=== PATIENT | female | born 1965 | race Caucasian/White ===

== ENCOUNTER 2023-07-22 15:17 | Inpatient (IN) | payer MEDICARE, OTHER ==
[~2023-07-22] VITALS: Ht 152.4 cm; Wt 43.3 kg
[~2023-07-22 15:17] MED LIST: ATIVAN0.5 MG PO; BACLOFEN5 MG PO; BASAG SOL SQ; BREO ELLIPTA 11 EACH INH; CEFDINIR300 MG PO; CHAIR CUSHION DEVICE ONE; COLACE100 MG PO; CRANBERRY450 M2 PO; DRAMAMINE25 M4 PO; DULOXETINE HCL60 MG PO; EFFEXOR XR37.5 M1 PO; EFFEXOR XR75 M1 PO; FENOFIBRATE160 MG PO; FEROSUL325 MG PO; FLUDROCORTISON0.1 MG PO; FOAM BANDAGE 5X5 T ONE; GLUMETZA1000 MG PO; HYDROCIL INSTA1 EACH PO; HYDROCODONE-AC1 EAC1 PO; INVEGA9 MG PO; LASIX20 MG PO; LEPTOSPERMUM HONEY 0.5 OZ TUBE T ONE; LEVEMIR100 UNIT/1 SC; LYVISPAH10 M1 PO; MELATONIN10 M2 PO; MELATONIN10 M5 SL; MELOXICAM7.5 MG PO; METAMUCIL0.4 G1 PO; NATURE'S BLEND F1 MG PO; NEXIUM40 MG PO; NORVASC5 MG PO; OMNICEF300 MG PO; PHENOBARBITAL15 MG PO; PHENOBARBITAL64.8 MG PO; POTASSIUM CHLO10 MEQ PO; PRISTIQ50 MG PO; REFRESH LIQUIGE15 M1 OP; REMERON15 M2 PO; RESTASIS1 EACH OP; TRANSDERM-SCOP1 EAC1 T; TRANSDERM-SCOP1 EAC1 TD; TRILEPTAL600 MG PO; TUMS FRESHERS200 MG PO; TYLENOL325 M1 PO; VISTARIL25 MG PO; VITAMIN D31250 MC1 PO; VRAYLAR3 MG PO; XALATAN 0.005%2.5 ML INTRAOC; XANAX0.25 MG PO; XANAX0.5 MG PO; ZOCOR40 MG PO
[2023-07-22 16:43] VITALS: BP 145/65
[2023-07-22] MEDS ORDERED: ACETAMINOPHEN 325 MG TAB PO PRN (18:50)
[2023-07-22] MEDS ORDERED: MG-AL HYDROXIDE/SIMETICONE 30 ML UDC PO PRN (18:50)
[2023-07-22] MEDS ORDERED: Magnesium Hydroxide 30 ML UDC PO PRN (18:50)
[2023-07-22] MEDS ORDERED: Menthol/Zinc Oxide 4 GM THIN T PRN (19:00)
[2023-07-22 19:36] LABS: BASO # 0.1 10*3/uL (0.0-0.1); BASO % 0.4 % (0.0-1.0); EOS # 0.1 10*3/uL (0.0-0.4); EOS % 0.4 % (1.0-4.0); HEMATOCRIT 35.3 % (37.0-47.0); LYMPH # 1.8 10*3/uL (1.3-4.4); LYMPH % 12.5 % (27.0-41.0); MEAN CELL VOLUME 76.6 fl (81.0-99.0); MEAN CORPUSCULAR HGB 24.9 pg (27.0-31.0); MEAN CORPUSCULAR HGB CONC 32.6 g/dl (33.0-37.0); MEAN PLATELET VOLUME 9.3 fl (9.6-12.3); MONO % 6.9 % (3.0-9.0); NEUT # 11.3 10*3/uL (2.3-7.9); NEUT % 79.4 % (47.0-73.0); PLATELET COUNT AUTOMATED 644 10*3/uL (130-400); RED BLOOD COUNT 4.61 10*6/uL (4.10-5.10); RED CELL DISTRI WIDTH 16.7 % (0-14.5); WHITE BLOOD COUNT 14.2 10*3/uL (4.8-10.8)
[2023-07-22 20:00] VITALS: BP 106/778
[2023-07-22 20:00] LABS: ALKALINE PHOSPHATASE 64 U/L (46-116); BUN 8 mg/dl (9-23); CHLORIDE 95 mmol/L (98-107); CHOLESTEROL 227 mg/dL (<200); LDL CHOLESTEROL 100 mg/dL (9-159); POTASSIUM 2.8 mmol/L (3.4-5.1); SGPT/ALT 18 U/L (5-49); TOTAL PROTEIN 7.4 gm/dL (6.0-8.0); TRIGLYCERIDES 96 mg/dl (<150); VITAMIN D, 25-HYDROXY 87.3 ng/mL (30-100)
[2023-07-22] MEDS ORDERED: PHENOBARBITAL 30 MG TAB PO SCH (21:00)
[2023-07-22] MEDS ORDERED: OXcarbazepine 600 MG TAB PO SCH (21:00)
[2023-07-23] MEDS ORDERED: POTASSIUM CHLORIDE 20 MEQ TAB PO ONE ×2 (02:40→10:15)
[2023-07-23] MEDS ORDERED: DEXTROSE 10 % IN WATER 250 ML IV PRN (02:45)
[2023-07-23] MEDS ORDERED: INSULIN LISPRO 1 UNIT/0.01 ML SQ SCH (07:30)
[2023-07-23] MEDS ORDERED: CALCIUM (TUMS) 500MG PO PRN (07:55)
[2023-07-23] MEDS ORDERED: Meclizine Hydrochloride 25 MG TAB PO PRN (07:55)
[2023-07-23 08:06] VITALS: BP 162/62
[2023-07-23] MEDS ORDERED: DOCUSATE SODIUM 100 MG CAP PO SCH (09:00)
[2023-07-23] MEDS ORDERED: Desvenlafaxine Succinate 50 MG TER PO SCH (09:00)
[2023-07-23] MEDS ORDERED: amLODIPine besylate 5 MG TAB PO SCH (09:00)
[2023-07-23] MEDS ORDERED: CARIPRAZINE HCL 1.5 MG CAPSULE PO SCH (09:00)
[2023-07-23] MEDS ORDERED: OXcarbazepine 600 MG TAB PO SCH (09:00)
[2023-07-23] MEDS ORDERED: FOLIC ACID 1 MG TAB PO SCH (10:00)
[2023-07-23] MEDS ORDERED: FUROSEMIDE 20 MG TAB PO SCH (10:00)
[2023-07-23] MEDS ORDERED: CEFDINIR 300 MG CAP PO SCH (10:15)
[2023-07-23 15:41] LABS: BILIRUBIN Negative (Negative); BLOOD Negative (Negative); CLARITY Cloudy (Clear); COLOR Yellow (Yellow); GLUCOSE 1+ (Negative); KETONE Negative (Negative); LEUKO ESTERASE 1+ (Negative); NITRITE Negative (Negative); PH 7.5 (4.5-8.0); UROBILINOGEN 0.2 E.U./dl (0.0-1.0)
[2023-07-23 15:49] LABS: BACTERIA 2+
[2023-07-23 20:00] VITALS: BP 156/64
[2023-07-23] MEDS ORDERED: LATANOPROST 0.005% 2.5 ML BOTTLE INTRAOC SCH (21:00)
[2023-07-24 08:00] VITALS: BP 143/70
[2023-07-24] MEDS ORDERED: CHAIR CUSHION DEVICE ONE (14:34)
[2023-07-24] MEDS ORDERED: FOAM BANDAGE 5X5 T ONE (14:34)
[2023-07-24] MEDS ORDERED: LEPTOSPERMUM HONEY 4 X 5 INCH WOUND DRESSING T ONE (14:34)
[2023-07-24 18:49] VITALS: BP 113/57
[2023-07-25 08:00] VITALS: BP 138/73
[2023-07-25] MEDS ORDERED: CARIPRAZINE HCL 1.5 MG CAPSULE PO ONE (08:15)
[2023-07-25] MEDS ORDERED: MED. FROM HOME 1 EACH EA PO SCH (09:00)
[2023-07-25 20:00] VITALS: BP 138/73
[2023-07-25] MEDS ORDERED: CARIPRAZINE HCL 3 MG CAPSULE PO SCH (21:00)
[2023-07-26 07:57] VITALS: BP 147/71
[2023-07-26 08:44] LABS: BASO % 0.6 % (0.0-1.0); EOS # 0.1 10*3/uL (0.0-0.4); EOS % 1.8 % (1.0-4.0); HEMATOCRIT 34.5 % (37.0-47.0); LYMPH # 1.2 10*3/uL (1.3-4.4); LYMPH % 16.3 % (27.0-41.0); MEAN CORPUSCULAR HGB 24.9 pg (27.0-31.0); MEAN CORPUSCULAR HGB CONC 32.8 g/dl (33.0-37.0); MEAN PLATELET VOLUME 8.8 fl (9.6-12.3); MONO # 0.5 10*3/uL (0.1-1.0); MONO % 7.3 % (3.0-9.0); NEUT # 5.4 10*3/uL (2.3-7.9); NEUT % 73.7 % (47.0-73.0); PLATELET COUNT AUTOMATED 718 10*3/uL (130-400); RED BLOOD COUNT 4.54 10*6/uL (4.10-5.10); WHITE BLOOD COUNT 7.3 10*3/uL (4.8-10.8)
[2023-07-26 09:22] LABS: BUN 10 mg/dl (9-23); CHLORIDE 99 mmol/L (98-107); POTASSIUM 3.2 mmol/L (3.4-5.1)
[2023-07-26] MEDS ORDERED: POTASSIUM CHLORIDE 20 MEQ TAB PO ONE (09:40)
[2023-07-26] MEDS ORDERED: FOAM BANDAGE 5X5 T ONE (11:27)
[2023-07-26 20:00] VITALS: BP 154/77
[2023-07-26] MEDS ORDERED: MED. FROM HOME 1 EACH EA PO SCH (21:00)
[2023-07-27] MEDS ORDERED: Glucagon Hydrochloride 1 MG SYR ONE (00:04)
[2023-07-27] MEDS ORDERED: BUDESONIDE 0.5 MG AMP NEB SCH (01:20)
[2023-07-27] MEDS ORDERED: Albuterol Sulfate 2.5 MG/3 ML VIAL NEB SCH (01:25)
[2023-07-27] MEDS ORDERED: Pantoprazole Sodium 40 MG TAB PO SCH (06:00)
[2023-07-27 08:08] VITALS: BP 152/58
[2023-07-27] MEDS ORDERED: POTASSIUM CHLORIDE 10 MEQ TAB PO SCH (10:00)
[2023-07-27] MEDS ORDERED: RESTASIS 0.05% OP SCH (10:00)
[2023-07-27] MEDS ORDERED: FENOFIBRATE 145 MG TAB PO SCH (10:00)
[2023-07-27] MEDS ORDERED: FERROUS SULFATE 325 MG TAB PO SCH (10:00)
[2023-07-27] MEDS ORDERED: FLUDROCORTISONE ACETATE 0.1 MG TAB PO SCH (10:00)
[2023-07-27 20:00] VITALS: BP 151/58
[2023-07-27] MEDS ORDERED: Insulin Glargine, Recombinan 300 UNITS/3 ML PEN SC SCH (21:00)
[2023-07-27] MEDS ORDERED: ATORVASTATIN CALCIUM 40 MG TABLET PO SCH ×2 (21:00→22:00)
[2023-07-27] MEDS ORDERED: BACLOFEN 10 MG TAB PO SCH (21:00)
[2023-07-27] MEDS ORDERED: PSYLLIUM 1 PCK PACKET PO SCH (22:00)
[2023-07-28] MEDS ORDERED: FOAM BANDAGE 5X5 T ONE (02:26)
[2023-07-28 07:59] VITALS: BP 112/79
[2023-07-28] MEDS ORDERED: GADOTERATE MEGLUMINE 5 MMOL/10 ML VIAL IV ONE (11:32)
[2023-07-28 20:00] VITALS: BP 122/62
[2023-07-28] MEDS ORDERED: RAMELTEON 8 MG TAB PO SCH (21:00)
[2023-07-29 08:00] VITALS: BP 112/55
[2023-07-29] MEDS ORDERED: Albuterol Sulfate 2.5 MG/3 ML VIAL NEB PRN (08:30)
[2023-07-29 20:00] VITALS: BP 115/93
[2023-07-30 07:59] VITALS: BP 141/55
[2023-07-30 20:00] VITALS: BP 155/58
[2023-07-30] MEDS ORDERED: Mirtazapine 15 MG TAB PO SCH (21:00)
[2023-07-31 07:30] VITALS: BP 134/50
[2023-07-31] MEDS ORDERED: FOAM BANDAGE 5X5 T ONE (10:44)
[2023-07-31] MEDS ORDERED: LEPTOSPERMUM HONEY 4 X 5 INCH WOUND DRESSING T ONE (10:44)
[2023-07-31 20:00] VITALS: BP 128/58
[2023-08-01 08:00] VITALS: BP 138/60
[2023-08-01] MEDS ORDERED: Loperamide Hydrochloride 2 MG CAP PO PRN (10:50)
[2023-08-01 15:26] LABS: BILIRUBIN Negative (Negative); BLOOD 1+ (Negative); CLARITY Clear (Clear); COLOR Yellow (Yellow); GLUCOSE Negative (Negative); KETONE Negative (Negative); LEUKO ESTERASE 2+ (Negative); NITRITE Negative (Negative); PH 7.5 (4.5-8.0)
[2023-08-01 15:50] LABS: BACTERIA 1+
[2023-08-01 20:00] VITALS: BP 132/65
[2023-08-02 08:06] VITALS: BP 130/48
[2023-08-02] MEDS ORDERED: MIRTAZAPINE15 M2 PO (08:06)
[2023-08-02] MEDS ORDERED: HOMEMED PO (08:07)
[2023-08-02] MEDS ORDERED: RAMELTEON8 MG PO (08:07)
[2023-08-02] MEDS ORDERED: VRAYLAR3 MG PO (08:07)
[2023-08-02] MEDS ORDERED: MACROBID100 M1 PO (09:31)
== END 2023-08-02 12:58 | DRG 885 ==
LOC: 3N 15:17
PROVIDERS: Family Medicine; ADMIT Psychiatry & Neurology Psychiatry; ATTEND Psychiatry & Neurology Psychiatry
PROC: GZHZZZZ Group Psychotherapy (ICD-10-PCS; principal; 2023-07-23)
PROC: GZ51ZZZ Individual Psychotherapy, Behavioral (ICD-10-PCS; 2023-07-23)
DX: F33.2 Major depressive disorder, recurrent severe without psychotic features (principal); E11.65 Type 2 diabetes mellitus with hyperglycemia; L89.154 Pressure ulcer of sacral region, stage 4; F23 Brief psychotic disorder; E87.1 Hypo-osmolality and hyponatremia; N30.00 Acute cystitis without hematuria; F41.9 Anxiety disorder, unspecified; D50.9 Iron deficiency anemia, unspecified; E78.00 Pure hypercholesterolemia, unspecified; D75.839 Thrombocytosis, unspecified; K21.9 Gastro-esophageal reflux disease without esophagitis; E87.6 Hypokalemia; E78.2 Mixed hyperlipidemia; I50.9 Heart failure, unspecified; E11.42 Type 2 diabetes mellitus with diabetic polyneuropathy; Z82.49 Family history of ischemic heart disease and other diseases of the circulatory system; Z83.3 Family history of diabetes mellitus